=== PATIENT | female | born 1940 | race Caucasian/White ===

== ENCOUNTER → 2017-03-22 | Outpatient (CLI) | payer MEDICARE, OTHER ==
[~2017-03-22] MED LIST: AMLO10TA82 PO; ASPI-586 PO; CYCL1DRO2 OP; FOLI20CA PO; FURO40TA4 PO; GBPN300C PO; INSU100V32 SQ; LEVO200T6 PO; LSNP10T PO; METF1000 PO; MOME13HF2 IH; TRIA1TAB3 PO; novalog
== END ==
LOC: RT 13:07
PROVIDERS: ATTEND Family Medicine
DX: J44.9 Chronic obstructive pulmonary disease, unspecified (principal)
CPT/HCPCS: 94620